=== PATIENT | female | born 2000 | race African-American/Black ===

== ENCOUNTER 2025-02-24 17:08 | Inpatient (IN) | payer MEDICAID ==
[~2025-02-24] VITALS: Ht 157.5 cm; Wt 84.4 kg
[2025-02-24 17:13] VITALS: O2SAT 100
[2025-02-24] MEDS: ONDANSETRON 4MG ODT PO ONE (19:29)
[2025-02-24] MEDS: FAMOTIDINE 20MG TABLET PO ONE (19:29)
[2025-02-24 19:46] LABS: BASOPHILS % 1.0 % (0.0-2.0); EOSINOPHILS % 1.8 % (0.0-5.0); HEMATOCRIT. 35.3 % (36.0-48.0); HEMOGLOBIN. 11.2 g/dL (12.0-16.0); LYMPHOCYTES % 33.9 % (20.0-50.0); MEAN PLATELET VOLUME 9.0 fl (7.4-10.4); MONOCYTES % 5.9 % (2.0-8.0); NEUTROPHILS % 57.4 % (40.0-76.0); PLATELET 408 x1000/uL (130-400); RED BLOOD CELL COUNT 4.07 mill/uL (4.2-5.4); RED CELL DISTRIBUTION WIDTH 14.5 % (11.6-14.6)
[2025-02-24] MEDS: PANTOPRAZOLE 40MG DR TABLET PO ONE (19:48)
[2025-02-24] MEDS: HYDROCODONE/ACETAMINOPHEN 5/325MG TABLET PO ONE (19:48)
[2025-02-24 19:53] LABS: INR 0.9
[2025-02-24 19:56] LABS: CREATININE 0.8 mg/dL (0.6-1.0); UREA NITROGEN BLOOD < 5 mg/dL (9-23)
[2025-02-24 19:58] LABS: ASPARTATE AMINOTRANSFERASE 46 IU/L (<34); BILIRUBIN DIRECT < 0.1 mg/dL (<=3.0); BILIRUBIN TOTAL 0.2 mg/dL (0.1-1.0); PROTEIN TOTAL 7.5 g/dL (6.0-8.3)
[2025-02-24 20:16] LABS: HCG SCREEN NEGATIVE
[2025-02-24] MEDS: PANTOPRAZOLE SODIUM 40 MG/VIAL IV ONE (22:14)
[2025-02-24] MEDS: METOCLOPRAMIDE HCL 10MG/2ML VIAL IV ONE (22:15)
[2025-02-24 23:03] LABS: CLARITY URINE CLEAR (CLEAR); COLOR URINE YELLOW (YELLOW); GLUCOSE URINE NEGATIVE (NEGATIVE); KETONES URINE NEGATIVE (NEGATIVE); LEUKOCYTE ESTERASE URINE NEGATIVE (NEGATIVE); NITRITE URINE NEGATIVE (NEGATIVE); OCCULT BLOOD URINE NEGATIVE (NEGATIVE); PH URINE 6.0 (4.5-8.0); PROTEIN URINE NEGATIVE (NEGATIVE); SPECIFIC GRAVITY URINE 1.005 (1.005-1.030); UROBILINOGEN URINE 0.2 E.U./dL (0.2-1.0)
[2025-02-24 23:31] LABS: *AMPHETAMINES SCREEN URINE NEGATIVE (NEGATIVE); *BARBITURATES SCREEN URINE NEGATIVE (NEGATIVE); *BENZODIAZEPINES SCREEN URINE NEGATIVE (NEGATIVE); *COCAINE SCREEN URINE NEGATIVE (NEGATIVE); CANNABINOID URINE SCREEN NEGATIVE (NEGATIVE); ECSTASY MDMA SCREEN URINE NEGATIVE (NEGATIVE); METHADONE URINE SCREEN NEGATIVE (NEGATIVE); OPIATES URINE SCREEN PRESUMPTIVE POSITIVE (NEGATIVE); PHENCYCLIDINE URINE SCREEN NEGATIVE (NEGATIVE)
[2025-02-25] VITALS (7 sets, daily range): BP systolic 101–119; BP diastolic 48–72; PULSE 55–78; RESP 16–20; TEMP 36.5–36.8; O2SAT 96–100
[2025-02-25] MEDS ORDERED: ACETAMINOPHEN 650MG/20.3ML UDC GT PRN (00:15)
[2025-02-25] MEDS ORDERED: DOCUSATE SODIUM 100MG CAPSULE PO PRN (00:15)
[2025-02-25] MEDS ORDERED: MAGNESIUM/ALUMINUM HYDROXIDE/SIMETHICONE 30ML UDC PO PRN (00:15)
[2025-02-25] MEDS ORDERED: ABIL10 MT (01:39)
[2025-02-25] MEDS ORDERED: TOPI50TA MT (01:40)
[2025-02-25] MEDS ORDERED: SERT100T MT (01:40)
[2025-02-25] MEDS: SERTRALINE HCL 100MG TABLET PO SCH (09:00)
[2025-02-25] MEDS: TOPIRAMATE 25MG TABLET PO SCH (09:00)
[2025-02-25] MEDS: ENOXAPARIN 30MG/0.3ML SYR SUBCUT SCH (09:00)
[2025-02-25] MEDS: PANTOPRAZOLE SODIUM 40 MG/VIAL IV SCH (09:16)
[2025-02-25 10:51] LABS: LACTATE DEHYDROGENASE 241 IU/L (120-246)
[2025-02-25 12:02] LABS: FOLIC ACID (FOLATE) SERUM 8.30 ng/mL (>5.38); VITAMIN B12 SERUM 263 pg/mL (211-911)
[2025-02-25] MEDS: INFLUENZA VACCINE 05/PF 0.5 ML SYRINGE IM ONE (14:27)
[2025-02-25] MEDS ORDERED: PROT20 MT (18:52)
[2025-02-26] VITALS: BP 106/54; PULSE 79; RESP 19; TEMP 36.6; O2SAT 99
[2025-02-26 04:00] VITALS: BP 102/55; PULSE 84; RESP 19; TEMP 36.3; O2SAT 100
[2025-02-26 08:00] VITALS: BP 119/69; PULSE 69; RESP 19; TEMP 36.6; O2SAT 100; O2SAT 19
[2025-02-26] MEDS: ONDANSETRON HCL 4MG/2ML INJ IV PRN (08:08)
[2025-02-26] MEDS ORDERED: ONDA4TAB50 MT (08:49)
[2025-02-26] MEDS ORDERED: PROT20 MT (08:49)
[2025-02-26 09:34] LABS: BASOPHILS % 0.4 % (0.0-2.0); EOSINOPHILS % 2.4 % (0.0-5.0); HEMATOCRIT. 36.1 % (36.0-48.0); HEMOGLOBIN. 11.8 g/dL (12.0-16.0); LYMPHOCYTES % 25.8 % (20.0-50.0); MEAN PLATELET VOLUME 8.8 fl (7.4-10.4); MONOCYTES % 3.5 % (2.0-8.0); NEUTROPHILS % 67.9 % (40.0-76.0); PLATELET 377 x1000/uL (130-400); RED BLOOD CELL COUNT 4.22 mill/uL (4.2-5.4); RED CELL DISTRIBUTION WIDTH 14.4 % (11.6-14.6)
[2025-02-26 09:48] LABS: CREATININE 0.9 mg/dL (0.6-1.0); UREA NITROGEN BLOOD 6 mg/dL (9-23)
[2025-02-26 09:54] VITALS: BP 113/70; PULSE 73; RESP 17; TEMP 98.2
[2025-02-26 11:50] VITALS: BP 113/70; PULSE 73; RESP 17; TEMP 36.8; O2SAT 98
== END 2025-02-26 12:40 | disposition home or self-care (01) | DRG 241 ==
LOC: ER 17:08 → 8WST 21:22 → EDBEDREQ 21:25 → EDBEDREQTM 21:25 → ENRESERV 22:27
PROVIDERS: ADMIT Hospitalist; ATTEND Hospitalist
DX: K29.00 Acute gastritis without bleeding (principal); R16.0 Hepatomegaly, not elsewhere classified; K20.90 Esophagitis, unspecified without bleeding; D50.9 Iron deficiency anemia, unspecified; F31.9 Bipolar disorder, unspecified; F41.9 Anxiety disorder, unspecified; K76.0 Fatty (change of) liver, not elsewhere classified; Z88.5 Allergy status to narcotic agent
CPT/HCPCS: 36415; 71045; 74176; 76705; 80048; 80076; 80305; 80320; 81003; 82607; 82746; 83540; 83550; 83615; 84443; 84703; 85014; 85018; 85025; 85044; 86850; 86900; 90686; 93005; 99285; J1650; J2405; J2470; J2765; Q0162; G0480